=== PATIENT | female | born 1970 | race Caucasian/White ===

== ENCOUNTER → 2016-11-01 | Outpatient (CLI) | payer BC | LOC: GMAL 10:42 | PROVIDERS: ATTEND Family Medicine | DX: D51.3 Other dietary vitamin B12 deficiency anemia (principal); R53.82 Chronic fatigue, unspecified; E55.9 Vitamin D deficiency, unspecified ==

== ENCOUNTER → 2018-06-15 | Outpatient (CLI) | payer BC ==
--- NOTE | 2018-06-15 11:41 | US ---
US THYROID CLINICAL STATEMENT: CYST. Thyromegaly. COMPARISON: Thyroid ultrasound 04/02/2009. FINDINGS: Size right thyroid lobe: 4.6 x 1.4 x 1.3 cm Size left thyroid lobe: 7.8 x 3.7 x 4.6 cm Size isthmus: 0.3 cm Estimated total number of nodules greater than or equal to 1 cm: 1 Nodule 1: Size: 0.6 x 0.5 x 0.4 cm Location: Right Mid Composition: solid or almost completely solid: 2 points Echogenicity: hypoechoic: 2 points Shape: wider than tall: 0 points Margins: smooth: 0 points Echogenic foci: none: 0 points ACR Total Points: 4; ACR TI-RADS risk category: TR4 - moderately suspicious nodule. Nodule 2: Size: 6 x 4 x 3 cm. Location: Left Mid Composition: mixed cystic and solid: 1 point Echogenicity: hypoechoic: 2 points Shape: wider than tall: 0 points Margins: ill-defined: 0 points Echogenic foci: none: 0 points ACR Total Points: 3; ACR TI-RADS risk category: TR3 - mildly suspicious nodule. Scanning of the soft tissue around the thyroid gland. No large calcifications or parenchymal edema. No distinct solid mass or cyst. No overlying skin changes. No abnormal vascularity. IMPRESSION: 1. Nodule 1: ACR TI-RADS 2017 Category 4. Recommend: No further follow-up. 2. Nodule 2: ACR TI-RADS 2017 Category 3. Recommend: Ultrasound-guided fine needle aspiration . Please see ACR TI RADS recommendations below. Soft tissue around the thyroid gland is unremarkable. *ACR TI-RADS 2017 Recommendations: TR1: No FNA or follow up TR2: No FNA or follow up TR3: FNA if >/= 2.5 cm, follow up if 1.5 - 2.4 cm in 1, 3, and 5 years TR4: FNA if >/= 1.5 cm, follow up if 1.0 - 1.4 cm in 1, 2, 3, and 5 years TR5: FNA if >/= 1.0 cm, follow up if 0.5 - 0.9 cm every year for 5 years ACR TI-RADS recommends that no more than two nodules with the highest ACR TI-RADS total point should be biopsied and no more than four nodules should be followed. Electronically signed by: Kendall Vernon MD 06/15/2018 11:40 AM CDT
== END ==
LOC: US 07:41
PROVIDERS: ATTEND Family Medicine
DX: E04.8 Other specified nontoxic goiter (principal)

== ENCOUNTER → 2018-06-27 | Outpatient (CLI) | payer BC | LOC: GMAL 14:52 | PROVIDERS: ATTEND Family Medicine | DX: E04.8 Other specified nontoxic goiter (principal) ==

== ENCOUNTER → 2019-06-21 | Outpatient (CLI) | payer BC | LOC: GMAL 10:19 | PROVIDERS: ATTEND Family Medicine | DX: D51.3 Other dietary vitamin B12 deficiency anemia (principal); E55.9 Vitamin D deficiency, unspecified ==

== ENCOUNTER → 2020-07-25 | Outpatient (CLI) | payer BC | LOC: GMAL 10:36 | PROVIDERS: ATTEND Family Medicine | DX: Z00.01 Encounter for general adult medical examination with abnormal findings (principal) ==